=== PATIENT | female | born 1990 | race Caucasian/White ===

== ENCOUNTER 2020-05-28 16:22 | Outpatient (CLI) | payer OTHER | END 2020-05-28 16:23 | disposition home or self-care (01) | LOC: COV 16:22 | PROVIDERS: ATTEND Family Medicine | DX: Z20.822 Contact with and (suspected) exposure to COVID-19 (principal) ==

== ENCOUNTER 2021-07-23 20:47 | Emergency (ER) | payer MEDICAID, OTHER ==
[2021-07-23 21:34] LABS: BASOPHILS # (AUTO) 0.1 10^3/uL (0.0-0.1); BASOPHILS % (AUTO) 0.4 %; EOSINOPHILS # (AUTO) 0.2 10^3/uL (0.0-0.7); EOSINOPHILS % (AUTO) 1.2 %; HCT - HEMATOCRIT 42.3 % (37.0-47.0); HGB - HEMOGLOBIN 13.4 g/dL (12.0-16.0); LYMPHOCYTES # (AUTO) 3.4 10^3/uL (1.5-3.5); LYMPHOCYTES % (AUTO) 24.2 %; MEAN CORPUSCULAR HEMOGLOBIN 25.2 pg (27.0-31.0); MEAN CORPUSCULAR HGB CONC 31.7 g/dL (32.0-36.0); MEAN CORPUSCULAR VOLUME 79.5 fL (81.0-99.0); MEAN PLATELET VOLUME 9.4 fL (7.9-10.8); MONOCYTES # (AUTO) 0.7 10^3/uL (0.0-1.0); MONOCYTES % (AUTO) 4.7 %; NEUTROPHILS # (AUTO) 9.6 10^3/uL (1.5-6.6); NEUTROPHILS % (AUTO) 68.9 %; PLT - PLATELET COUNT 342 10^3/uL (130-450); RED BLOOD COUNT 5.32 10^6/uL (4.20-5.40); RED CELL DISTRIBUTION WIDTH 13.3 % (12.0-15.0); WHITE BLOOD COUNT 13.9 x10^3/uL (4.8-10.8)
--- NOTE | 2021-07-23 21:39 | ED Physician Documentation ---
History of Present Illness - Stated complaint Stated Complaint: high bp,nausea,vomiting - Chief complaint Chief Complaint: Abd Pain - History obtained from History obtained from: Patient - History of Present Illness Timing: How many days ago (2) Pain level now: 2 Improved by: nothing Worsened by: PO intake - Additonal information Additional information: patient had mild low back pain 2 days ago after doing some strenuous work. she took two tablets of oxycodone from an old rx of hers (the rx had already ). Within one hour of taking the tablets, she developed nausea and vomiting. She has had varying degrees of nausea with vomiting ever since then. She had taken oxycodone before without such side effect. She presents at this time because she can no longer keep any thing down including sips of water and her medication. She denies abdominal pain. She denies fever. She has Covid vaccinate without a booster. Review of Systems Constitutional: reports: Reviewed and negative Cardiac: reports: Reviewed and negative Respiratory: reports: Reviewed and negative GI: reports: Nausea, Vomiting. denies: Abdominal Pain, Abdominal Swelling, Constipation, Diarrhea : denies: Dysuria, Frequency PD PAST MEDICAL HISTORY - Past Medical History Past Medical History: No Cardiovascular: Hypertension - Present Medications Home Medications: Ambulatory Orders Medication Instructions Recorded Confirmed Lisinopril [Zestril] 20 mg PO DAILY 07/23/21 07/23/21 Venlafaxine HCl [Effexor Xr] 150 mg PO DAILY 07/23/21 07/23/21 Ondansetron Odt [Zofran Odt] 4 - 8 mg TL Q6H PRN #20 tablet 07/24/21 - Allergies Allergies/Adverse Reactions: Allergies Allergy/AdvReac Type Severity Reaction Status Date / Time No Known Drug Allergies Allergy Verified 07/23/21 20:57 PD ED PE NORMAL - Vitals Vital signs reviewed: Yes - General General: Alert and oriented X 3, No acute distress, Well developed/nourished - HEENT HEENT: Other (tacky/pasty mucous membranes) - Neck Neck: Supple, no meningeal sign - Cardiac Cardiac: RRR, No murmur - Respiratory Respiratory: No respiratory distress, Clear bilaterally - Abdomen Abdomen: Normal bowel sounds, Soft, Non tender, Non distended - Back Back: No CVA TTP Results - Vitals Vitals: Oxygen O2 Source Room air - Labs Labs: Laboratory Tests 07/23/21 07/23/21 21:20 21:20 WBC 13.9 H RBC 5.32 Hgb 13.4 Hct 42.3 MCV 79.5 L MCH 25.2 L MCHC 31.7 L RDW 13.3 Plt Count 342 MPV 9.4 Neut # (Auto) 9.6 H Lymph # (Auto) 3.4 [place] # (Auto) 0.7 Eos # (Auto) 0.2 Baso # (Auto) 0.1 Absolute Nucleated RBC 0.00 Nucleated RBC % 0.0 Sodium 135 Potassium 3.9 Chloride 96 L Carbon Dioxide 28 Anion Gap 11.0 BUN 10 Creatinine 0.7 Estimated GFR (MDRD) 97 Glucose 168 H Calcium 9.0 Total Bilirubin 0.7 AST 47 H ALT 52 Alkaline Phosphatase 75 Total Protein 7.9 Albumin 4.7 Globulin 3.2 Albumin/Globulin Ratio 1.5 Lipase 42 PD MEDICAL DECISION MAKING - ED course Complexity details: reviewed results, re-evaluated patient, considered differential, d/w patient ED course: two days of nausea and vomiting, no longer able to tolerate any PO. Shes given 1 L of normal saline IV, Zofran 4 mg IV with repeat dose. Her blood tests are reassuring, with mild leukocytosis noted. On reevaluation, she says she still has significant nausea, and is given 10 mg of Compazine IV. She is also given IV Toradol for a generalized headache. On subsequent reevaluation, she is in no apparent distress, and is requesting discharge. she was able to tolerate liquids in the ER prior to discharge. Departure - Departure Disposition: 01 Home, Self Care Clinical Impression: Vomiting Qualifiers: Vomiting type: unspecified Nausea presence: with nausea Qualified Code(s): R11.2 - Nausea with vomiting, unspecified Condition: Good Instructions: ED Nausea Vomiting Follow-Up: ITALO ALMANZA [Primary Care Provider] - Prescriptions: Ondansetron Odt [Zofran Odt] 4 - 8 mg TL Q6H PRN #20 tablet PRN Reason: Nausea / Vomiting Comments: A prescription for ondansetron (anti-nausea medication) was electronically submitted to [facility] pharmacy in [place]. The cause of you symptoms is unclear at this time. Your blood tests had no concerning abnormalities (as we discussed, your blood sugar was mildly elevated although this is not an uncommon finding for an ER patient when they are not feeling well) and you had minimal elevation of one liver function test (this is an incidental finding). Discharge Date/Time: 07/24/21 00:49
[2021-07-23 21:49] LABS: ALBUMIN 4.7 g/dL (3.2-5.5); ALBUMIN/GLOBULIN RATIO 1.5 (1.0-2.2); BILIRUBIN,TOTAL 0.7 mg/dL (0.2-1.0); CREATININE 0.7 mg/dL (0.4-1.0); POTASSIUM 3.9 mmol/L (3.5-5.0); TOTAL PROTEIN 7.9 g/dL (6.7-8.2)
[2021-07-23] MEDS ORDERED: ONDANSETRON 4 MG/2 ML VIAL IVP STA ×2 (22:03→22:55)
[2021-07-23] MEDS ORDERED: SODIUM CHLORIDE 0.9% 1,000 ML IV STA (22:03)
[2021-07-23] MEDS ORDERED: PROCHLORPERAZINE 10 MG/2 ML VIAL IVP STA (23:30)
[2021-07-23] MEDS ORDERED: KETOROLAC 30 MG/ML VIAL IVP STA (23:32)
[2021-07-24 00:50] VITALS: BP 133/84
== END 2021-07-24 00:49 | disposition home or self-care (01) ==
LOC: ED 20:47
DX: R11.2 Nausea with vomiting, unspecified (principal); I10 Essential (primary) hypertension
CPT/HCPCS: 36415; 80053; 83690; 85025; 96374; 96375; 96376; 99284